=== PATIENT | female | born 1955 | race Caucasian/White ===

== ENCOUNTER → 2020-08-13 | Outpatient (CLI) | payer OTHER ==
[~2020-08-13] VITALS: Ht 160 cm; Wt 66.2 kg
[~2020-08-13] MED LIST: ALLEGRA ALLERG180 MG PO; ATORVASTATIN CA40 MG PO; CLARITIN10 MG PO; FLAXSEED1000 MG PO; HYDROCODON-ACE1 EAC4 PO; IBU600 MG PO; LOW DOSE ASPIRI81 MG PO; PANTOPRAZOLE SO40 MG PO; PERCOCET 5-3251 EACH PO; TURMERIC CURCUMIN PO; VITAMIN C PO; VITAMIN D350 MC3 PO
[2020-08-13 07:49] LABS: HEMOGLOBIN 12.9 gm/dl (12.3-15.3); RED BLOOD COUNT 4.41 M/UL (4.00-5.10); WHITE BLOOD COUNT 5.6 K/UL (4.5-11.0)
== END ==
LOC: CT 06:36
PROVIDERS: Internal Medicine
DX: C34.11 Malignant neoplasm of upper lobe, right bronchus or lung (principal); K21.9 Gastro-esophageal reflux disease without esophagitis; M19.90 Unspecified osteoarthritis, unspecified site; E78.00 Pure hypercholesterolemia, unspecified
CPT/HCPCS: 36415; 71045; 77012; 85027; 85610; 88172

== ENCOUNTER → 2020-08-27 | Outpatient (CLI) | payer OTHER | LOC: HEART 5 09:13 | DX: R91.8 Other nonspecific abnormal finding of lung field (principal) | CPT/HCPCS: 94010 ==

== ENCOUNTER → 2020-08-28 | Outpatient (CLI) | payer OTHER | LOC: EMI 14:50 | DX: C34.11 Malignant neoplasm of upper lobe, right bronchus or lung (principal); Z12.89 Encounter for screening for malignant neoplasm of other sites; R90.82 White matter disease, unspecified | CPT/HCPCS: 70553; A9577 ==

== ENCOUNTER → 2020-09-13 | Outpatient (CLI) | payer OTHER | LOC: RAD 11:29 | DX: Z00.00 Encounter for general adult medical examination without abnormal findings (principal); R93.89 Abnormal findings on diagnostic imaging of other specified body structures | CPT/HCPCS: 71046 ==

== ENCOUNTER 2021-01-06 20:21 | Emergency (ER) | payer OTHER ==
[2021-01-06 22:58] LABS: RED BLOOD COUNT 4.55 M/UL (4.00-5.10); WHITE BLOOD COUNT 9.4 K/UL (4.5-11.0)
[2021-01-06 23:21] LABS: BUN/CREATININE RATIO 21 (0-10)
== END 2021-01-07 01:31 | disposition home or self-care (01) ==
LOC: ER1 20:21
PROVIDERS: Physician Assistant Medical
DX: C34.90 Malignant neoplasm of unspecified part of unspecified bronchus or lung (principal); E78.5 Hyperlipidemia, unspecified; F45.21 Hypochondriasis
CPT/HCPCS: 80053; 85025; 99284; Q9967

== ENCOUNTER → 2021-01-22 | Outpatient (CLI) | payer OTHER | LOC: CT 01-20 11:30 | DX: C34.11 Malignant neoplasm of upper lobe, right bronchus or lung (principal) | CPT/HCPCS: 71260; Q9967 ==